=== PATIENT | female | born 1975 | race Caucasian/White ===

== ENCOUNTER 2020-10-24 17:19 | Inpatient (IN) ==
[2020-10-24] MEDS ORDERED: haloperidoL 5 MG TABLET PO PRN (20:58)
[2020-10-24] MEDS ORDERED: *HR* LORazepam 1 MG TABLET PO PRN (20:58)
[2020-10-24] MEDS ORDERED: hydrOXYzine pamoate 25 MG CAPSULE PO PRN (20:58)
[2020-10-24] MEDS ORDERED: *HR* LORazepam 2 MG/ML VIAL IM PRN (20:58)
[2020-10-24] MEDS ORDERED: Acetaminophen 325 MG TABLET PO PRN (20:58)
[2020-10-24] MEDS ORDERED: traZODone 50 MG TABLET PO PRN (20:58)
[2020-10-24] MEDS ORDERED: Haloperidol Lactate 5 MG/ML VIAL IM PRN (20:58)
[2020-10-25] MEDS ORDERED: MOM Conc 10 ML UD.LIQ PO PRN (12:56)
[2020-10-30] MEDS: Mag Hydrox/Al Hydrox/Simeth 30 ML UDC PO PRN (07:39)
[2020-10-30] MEDS: HydrOXYzine SYP 10 MG/5 ML UDC PO PRN (23:47)
[2020-10-31] MEDS: HydrOXYzine SYP 10 MG/5 ML UDC PO PRN (17:34)
[2020-10-31] MEDS: Mirtazapine 15 MG TABLET PO SCH (21:59)
[2020-11-01] MEDS: HydrOXYzine SYP 10 MG/5 ML UDC PO PRN ×2 (11:59→20:37)
[2020-11-01] MEDS: Mirtazapine 15 MG TABLET PO SCH (21:57)
[2020-11-02] MEDS: Mag Hydrox/Al Hydrox/Simeth 30 ML UDC PO PRN (13:05)
[2020-11-02] MEDS: HydrOXYzine SYP 10 MG/5 ML UDC PO PRN (14:38)
[2020-11-02] MEDS: Mirtazapine 15 MG TABLET PO SCH (22:05)
[2020-11-03] MEDS: HydrOXYzine SYP 10 MG/5 ML UDC PO PRN ×2 (09:55→19:50)
[2020-11-03] MEDS: Mirtazapine 15 MG TABLET PO SCH (21:59)
[2020-11-04] MEDS: Mirtazapine 15 MG TABLET PO SCH (21:58)
[2020-11-04] MEDS: HydrOXYzine SYP 10 MG/5 ML UDC PO PRN (21:58)
[2020-11-05] MEDS: HydrOXYzine SYP 10 MG/5 ML UDC PO PRN ×2 (14:47→23:37)
[2020-11-05] MEDS: Mirtazapine 15 MG TABLET PO SCH (21:53)
[2020-11-06] MEDS: HydrOXYzine SYP 10 MG/5 ML UDC PO PRN ×2 (14:31→18:58)
[2020-11-06] MEDS: Mirtazapine 15 MG TABLET PO SCH (22:00)
[2020-11-07] MEDS: HydrOXYzine SYP 10 MG/5 ML UDC PO PRN (13:02)
[2020-11-07] MEDS ORDERED: Melatonin 3 MG TABLET PO SCH (21:00)
[2020-11-07] MEDS: hydrOXYzine pamoate 25 MG CAPSULE PO SCH (21:56)
[2020-11-07] MEDS: Mirtazapine 15 MG TABLET PO SCH (21:56)
[2020-11-08] MEDS: Mirtazapine 15 MG TABLET PO SCH (21:47)
[2020-11-08] MEDS: hydrOXYzine pamoate 25 MG CAPSULE PO SCH (21:47)
[2020-11-09] MEDS: hydrOXYzine pamoate 25 MG CAPSULE PO SCH (21:57)
[2020-11-09] MEDS: Mirtazapine 15 MG TABLET PO SCH (21:57)
[2020-11-10] MEDS ORDERED: hydrOXYzine pamoate 25 MG CAPSULE PO ONE (13:50)
[2020-11-10] MEDS ORDERED: traZODone 50 MG TABLET PO SCH (21:00)
[2020-11-10] MEDS: Mirtazapine 15 MG TABLET PO SCH (21:55)
[2020-11-10] MEDS: hydrOXYzine pamoate 25 MG CAPSULE PO SCH (21:56)
[2020-11-11] MEDS: traZODone 50 MG TABLET PO SCH (21:46)
[2020-11-11] MEDS: Mirtazapine 15 MG TABLET PO SCH (21:46)
[2020-11-11] MEDS: hydrOXYzine pamoate 25 MG CAPSULE PO SCH (21:46)
[2020-11-12] MEDS: hydrOXYzine pamoate 25 MG CAPSULE PO PRN ×2 (13:06→17:57)
[2020-11-12] MEDS: traZODone 50 MG TABLET PO SCH (21:54)
[2020-11-12] MEDS: hydrOXYzine pamoate 25 MG CAPSULE PO SCH (21:54)
[2020-11-12] MEDS: Mirtazapine 15 MG TABLET PO SCH (21:54)
[2020-11-13 09:24] VITALS: BP 120/80
== END 2020-11-13 13:20 | disposition home or self-care (01) | DRG 751 ==
LOC: EMEROOARM 17:19 → SUATTDRO 20:54 → 1ANU 20:54
PROVIDERS: ADMIT Psychiatry & Neurology Psychiatry; ATTEND Psychiatry & Neurology Forensic Psychiatry